=== PATIENT | female | born 1980 | race Caucasian/White ===

== ENCOUNTER 2022-05-06 00:48 | Emergency (ER) | payer OTHER ==
[2022-05-06 01:12] LABS: Bilirubin Neg (Negative); Blood, Urine 10 (Negative); Clarity Slightly Cloudy (Clear); Glucose, Urine (Dipstick) Normal (Negative); Ketone, Urine 5 mg/dL (Negative); Leukocyte 500 (Negative); Nitrite Negative (Negative); Protein, Urine (Dipstick) 15 mg/dl (Neg-Trace); Specific Gravity, Urine 1.025 (1.005-1.030); Urobilinogen Normal mg/dL (Less than 2)
[2022-05-06 01:19] LABS: Bacteria/HPF 2+ HPF (None Seen); RBC/HPF 0-3 HPF (0-3)
[2022-05-06] MEDS ORDERED: Phenazopyridine HCl 95 MG TAB ONE (01:26)
[2022-05-06] MEDS ORDERED: Phenazopyridine HCl 95 MG TAB PO SCH (01:30)
== END 2022-05-06 01:29 | disposition home or self-care (01) ==
LOC: CSHERS 00:48
DX: N30.00 Acute cystitis without hematuria (principal); F17.290 Nicotine dependence, other tobacco product, uncomplicated
CPT/HCPCS: 81003; 81015; 99284

== ENCOUNTER 2022-09-03 21:37 | Emergency (ER) | payer MEDICARE, OTHER | END 2022-09-03 22:30 | disposition home or self-care (01) | LOC: CSHERS 21:37 | DX: M25.531 Pain in right wrist (principal) ==

== ENCOUNTER 2022-09-20 18:45 | Emergency (ER) | payer MEDICARE, OTHER ==
[2022-09-20] MEDS ORDERED: Meclizine HCl 25 MG TAB ONE ×2 (19:41→19:46)
[2022-09-20] MEDS ORDERED: Ketorolac Tromethamine 30 MG/ML VIAL ONE ×2 (19:41→19:46)
== END 2022-09-20 20:27 | disposition home or self-care (01) ==
LOC: CSHERS 18:45
DX: H81.13 Benign paroxysmal vertigo, bilateral (principal); F17.290 Nicotine dependence, other tobacco product, uncomplicated
CPT/HCPCS: 36416; 96372; 99284; J1885

== ENCOUNTER 2022-10-07 17:54 | Emergency (ER) | payer OTHER ==
[2022-10-07 18:50] LABS: Bilirubin 1+ (Negative); Blood, Urine Negative (Negative); Clarity Clear (Clear); Glucose, Urine (Dipstick) Normal (Negative); Ketone, Urine Negative (Negative); Leukocyte Negative (Negative); Nitrite Negative (Negative); Protein, Urine (Dipstick) 30 mg/dl (Neg-Trace); Urobilinogen Normal mg/dL (Less than 2)
[2022-10-07 19:18] LABS: CAUTI Indications for Culture Pelvic or flank pain; RBC/HPF 0-3 HPF (0-3); WBC/HPF 0-3 HPF (0-3)
[2022-10-07 19:19] LABS: Bacteria/HPF 3+ HPF (None Seen); Mucous/LPF 3+ LPF (<2+); Squamous Epithelial 0-3 HPF (0-3); Urine Culture Reflex No No
[2022-10-07] MEDS ORDERED: Ketorolac Tromethamine 30 MG/ML VIAL ONE (19:21)
[2022-10-07] MEDS ORDERED: Nitrofurantoin Monohyd/M-Cryst 100 MG CAP PO SCH (20:15)
== END 2022-10-07 20:06 | disposition home or self-care (01) ==
LOC: CSHERS 17:54
DX: R82.71 Bacteriuria (principal); R35.0 Frequency of micturition; R10.11 Right upper quadrant pain; R10.31 Right lower quadrant pain; Z87.891 Personal history of nicotine dependence
CPT/HCPCS: 81001; 87086; 96372; 99284; J1885

== ENCOUNTER 2022-11-04 00:51 | Inpatient (IN) | payer OTHER ==
[2022-11-04] MEDS ORDERED: diphenhydrAMINE 50 MG/ML VIAL ONE (00:57)
[2022-11-04] MEDS ORDERED: EPINEPHrine 1 MG/ML VIAL ONE (00:57)
[2022-11-04] MEDS ORDERED: methylPREDNISolone Sod Succ/PF 125 MG/2 ML VIAL ONE (00:57)
[2022-11-04] MEDS ORDERED: Famotidine/PF 20 mg/2ml Vial ONE (00:58)
[2022-11-04] MEDS ORDERED: hydrOXYzine 25 MG TAB ONE (02:27)
[2022-11-04] MEDS ORDERED: Lorazepam 2 MG/ML VIAL ONE (02:40)
[2022-11-04] MEDS ORDERED: Ondansetron PF 4 MG/2 ML Vial IVP PRN (03:04)
[2022-11-04] MEDS ORDERED: Acetaminophen 325 MG TAB PO PRN (03:04)
[2022-11-04] MEDS ORDERED: HYDROcodone/Acetaminophen 5/325 mg Tablet PO PRN (03:04)
[2022-11-04] MEDS ORDERED: Lactated Ringer's 1,000 ML IV SCH (03:15)
[2022-11-04 04:19] LABS: ALT (SGPT) 18 U/L (8-55); AST (SGOT) 18 U/L (5-34); Albumin 3.8 g/dL (3.5-5.0); Alkaline Phosphatase 71 U/L (40-110); Anion Gap 15 mmol/L (10-20); BUN (Urea Nitrogen) 9 mg/dL (7.0-18.7); Bilirubin, Total 0.3 mg/dL (0.2-1.2); Calc. Creatinine Clearance 0 mL/min (70-130); Calcium 8.2 mg/dL (7.8-10.44); Carbon Dioxide 12 mmol/L (22-29); Chloride 112 mmol/L (98-107); Estimated GFR 88; Globulin 2.7 g/dL (2.4-3.5); Glucose 168 mg/dL (70-105); Potassium 3.5 mmol/L (3.5-5.1); Protein, Total 6.5 g/dL (6.0-8.3); Sodium 135 mmol/L (136-145)
[2022-11-04 04:42] VITALS: BMI 48.2
[2022-11-04 04:54] LABS: #Basophils 0.1 10x3/uL (0.0-0.2); #Monocytes 0.6 10x3/uL (0.0-1.1); #Neutrophils 16.9 10x3/uL (1.5-8.4); %Basophils 0.3 % (0.0-2.0); %Eosinophils 0.1 % (0.0-6.0); %Lymphocytes 6.3 % (18.0-47.0); %Monocytes 3.2 % (0.0-10.0); %Neutrophils 89.1 % (40.0-75.0); Hematocrit 43.7 % (34.9-44.5); Hemoglobin 14.7 g/dL (12.0-15.5); Mean Corpuscular HGB CONC 33.6 g/dL (32.0-36.0); Mean Corpuscular Volume 89.2 fl (81.6-98.3); Mean Platelet Volume 10.6 fl (7.4-10.4); Platelet Count 341 10x3/uL (150-450); RBC Distribution Width 13.5 % (11.5-14.5)
[2022-11-04] MEDS: methylPREDNISolone Sod Succ 40 MG VIAL IVP SCH ×2 (05:00→12:39)
[2022-11-04] MEDS: diphenhydrAMINE 50 MG/ML VIAL IVP SCH ×2 (05:00→12:39)
[2022-11-04] MEDS: Lorazepam 2 MG/ML VIAL SLOW IVP PRN ×2 (05:06→10:21)
[2022-11-04] MEDS ORDERED: HYDROcodone/Acetaminophen 10/325 mg Tablet PO PRN (07:30)
[2022-11-04] MEDS ORDERED: hydrOXYzine 25 MG TAB PO SCH (09:00)
[2022-11-04] MEDS ORDERED: FLUoxetine HCl 20 MG CAP PO SCH (09:00)
[2022-11-04] MEDS ORDERED: Bupropion 150 MG XL TAB PO SCH (09:00)
[2022-11-04] MEDS ORDERED: Topiramate 25 MG TAB PO SCH (09:00)
[2022-11-04] MEDS ORDERED: Famotidine/PF 20 mg/2ml Vial SLOW IVP SCH (09:00)
[2022-11-04] MEDS ORDERED: Prazosin HCl 1 MG CAP PO SCH (09:00)
[2022-11-04 15:25] VITALS: BP 134/68
[2022-11-04] MEDS ORDERED: diphenhydrAMINE 50 MG/ML VIAL IVP SCH (18:00)
== END 2022-11-04 16:20 | disposition left against medical advice (07) | DRG 916 ==
LOC: CSHERS 00:51 → CSHICU 04:40
PROVIDERS: ADMIT Student in an Organized Health Care Education/Training Program; ATTEND Internal Medicine
PROC: 3E033XZ Introduction of Vasopressor into Peripheral Vein, Percutaneous Approach (ICD-10-PCS; principal; 2022-11-04)
DX: T78.2XXA Anaphylactic shock, unspecified, initial encounter (principal); J45.21 Mild intermittent asthma with (acute) exacerbation; R65.10 Systemic inflammatory response syndrome (SIRS) of non-infectious origin without acute organ dysfunction; F41.9 Anxiety disorder, unspecified; L50.9 Urticaria, unspecified; G43.909 Migraine, unspecified, not intractable, without status migrainosus; F31.9 Bipolar disorder, unspecified; Z98.890 Other specified postprocedural states; Z87.891 Personal history of nicotine dependence; Z90.49 Acquired absence of other specified parts of digestive tract; Z90.710 Acquired absence of both cervix and uterus; Z98.51 Tubal ligation status; Z98.42 Cataract extraction status, left eye; Z79.51 Long term (current) use of inhaled steroids; Z88.0 Allergy status to penicillin; Z88.1 Allergy status to other antibiotic agents; Z79.899 Other long term (current) drug therapy; L29.9 Pruritus, unspecified
CPT/HCPCS: 36415; 71045; 80053; 85025; 94640; 94760; 94762; J0171; J1200; J2060; J2920; J2930; J7120; J7611; S0028

== ENCOUNTER 2023-03-08 14:05 | Emergency (ER) | payer OTHER, SELFPAY | END 2023-03-08 14:47 | disposition left against medical advice (07) | LOC: CSHERS 14:05 | DX: Z53.21 Procedure and treatment not carried out due to patient leaving prior to being seen by health care provider (principal) ==